=== PATIENT | female | born 1950 | race Native Hawaiian/Other Pacific Islander ===

== ENCOUNTER 2019-01-19 11:51 | Emergency (ER) | payer OTHER ==
[~2019-01-19] VITALS: Ht 157.5 cm; Wt 94.3 kg
[~2019-01-19 11:51] MED LIST: AMLO10TA PO; APAP/HYDROCO1 TAB PO; HYZAAR1 TA2 PO; OMEPRAZOLE20 M1 OR; TRIGLIDE160 MG PO
[2019-01-19 13:39] LABS: PLATELET COUNT 145 K/uL (152-353)
[2019-01-19 13:46] LABS: POTASSIUM 3.5 mmol/L (3.6-5.2)
[2019-01-19] MEDS ORDERED: MONT10TA PO (14:25)
[2019-01-19] MEDS ORDERED: CLONIDINE HYDR0.2 MG PO (14:25)
[2019-01-19] MEDS ORDERED: ZOLOFT25 MG PO (14:26)
[2019-01-19] MEDS ORDERED: LOSA50TA PO (14:26)
[2019-01-19] MEDS ORDERED: REQUIP1 MG PO (14:26)
[2019-01-19] MEDS ORDERED: LIPITOR20 MG PO (14:27)
[2019-01-19] MEDS ORDERED: TRAZODONE HYDRO50 MG PO (14:27)
[2019-01-19 14:55] VITALS: BP 189/68; TEMP 97.7
== END 2019-01-19 14:55 | disposition short-term general hospital (02) ==
LOC: ED 11:51
PROVIDERS: Student in an Organized Health Care Education/Training Program
DX: S06.6X0A Traumatic subarachnoid hemorrhage without loss of consciousness, initial encounter (principal); S09.8XXA Other specified injuries of head, initial encounter; W10.8XXA Fall (on) (from) other stairs and steps, initial encounter; Y92.098 Other place in other non-institutional residence as the place of occurrence of the external cause
CPT/HCPCS: 80053; 85027; 90471; 90715; 93005; 96374; 99284; J0360

== ENCOUNTER 2019-01-19 15:01 | Outpatient (CLI) | payer OTHER ==
[~2019-01-19 15:01] MED LIST changes: +CLONIDINE HYDR0.2 MG PO; +LIPITOR20 MG PO; +LOSA50TA PO; +MONT10TA PO; +REQUIP1 MG PO; +TRAZODONE HYDRO50 MG PO; +ZOLOFT25 MG PO
== END 2019-01-19 16:19 | disposition short-term general hospital (02) ==
LOC: AMB 15:01
DX: S06.6X0A Traumatic subarachnoid hemorrhage without loss of consciousness, initial encounter (principal); S09.8XXA Other specified injuries of head, initial encounter; I10 Essential (primary) hypertension
CPT/HCPCS: A0425; A0429

== ENCOUNTER 2020-04-04 15:00 | Outpatient (CLI) | payer OTHER | END 2020-04-04 20:11 | disposition home or self-care (01) | LOC: EMG 15:00 | PROVIDERS: ATTEND Pain Medicine Interventional Pain Medicine | DX: M54.16 Radiculopathy, lumbar region (principal) | CPT/HCPCS: 95860; 95910 ==